=== PATIENT | male | born 1980 | race Two or more races ===

== ENCOUNTER 2023-08-12 13:32 | Emergency (ER) | payer SELFPAY ==
--- NOTE | 2023-08-12 14:03 | ED.GENADULT ---
HPI - General Adult General Chief complaint: Wound/Laceration Stated complaint: Ring Finger Lac Left Hand Time Seen by Provider: 08/12/23 15:02 Source: patient Mode of arrival: ambulatory Limitations: no limitations History of Present Illness HPI narrative: 43 yo right hand dominant male presents to the ER for evaluation of left index finger wound. 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 there was a lot of bleeding. he was anxious and seeing his blood made him vomit. someone told him to put the wound in loose leaf tobacco and wrap it up. he arrives to the ER with the piece of skin from the tip of the finger. no active bleeding. unknown today complaint: left index finger lac Onset (ago): minute(s) Location: left and upper extremity Radiation: proximal Severity: moderate Severity scale (1-10): 8 Quality: aching Pain Consistency: constant Exacerbating factors: movement Related Data Allergies Allergy/AdvReac Type Severity Reaction Status Date / Time No Known Allergies Allergy Verified 08/12/23 14:03 Review of Systems Review of Systems: Yes all other systems are reviewed and are negative [facility] Social History Social History Advance Directives: No Advance Directives Information Provided: Yes Physical Exam ED Vital Signs: Vital Signs - 24 hr 08/12/23 14:04 08/12/23 15:43 Temperature 98 F Pulse Rate 65 56 Respiratory Rate 19 16 Blood Pressure 153/78 H 123/56 L Pulse Oximetry 98 97 Oxygen Delivery Method Room Air Room Air BMI result Body Mass Index 28.1 Appearance: Alert. Oriented X3. No acute distress. HEENT: normal inspection CVS: Normal heart rate and rhythm. Pulses normal. Respiratory: No respiratory distress. Skin: Skin warm and dry. Normal skin color. Normal skin turgor. No rashes. Extremities: left index finger with a 1cm skin avulsion involving part of the distal fingernail. slight oozing with brown bits of tobacco stuck to the wound. FROM of the digit Neuro: Oriented X 3. No motor deficit. No sensory deficit. Course Course Course Narrative: RME - 43 year old male presents for evaluation of left 4th finger laceration from a customer support manager Procedures Laceration Laceration 1: Site: hand Side (If applicable): left Description: other (avulsion) Pre-repair: irrigated extensively Skin layer closed with: other (exofin skin glue) Medical Decision Making Medical Decision Making MDM Narrative: 43 yo male presenting with skin avulsion of the left index finger on a customer support manager. finger required extensive irrigation and soaking to remove the tobacco. tdap given. exofin used to cover and protect the wound with no further active bleeding. clean, dry, dressing applied. wound care discussed. stable for d/c home Differential Diagnosis Differential Diagnoses: The differential diagnosis associated with the presentation includes skin avulsion, open fracture, tendon injury Tests considered The following testing was considered but not selected: considered xray but wound is distal and superficial Prescription Management I considered prescription management with: Pain Medication and Antibiotic Critical Care Time Critical Care Time Critical Care Time: No Discharge Plan Discharge Clinical Impression: Avulsion of skin Patient Disposition: Home, Self-Care Instructions: Skin Avulsion (ED) Additional Instructions: Skin glue was used to cover and protect the area of open skin. This will heal with time. The skin glue will come off on its own, usually within 1 week, do not peel it off If you have recurrent bleeding, apply pressure for at least 10 minutes Elevate your hand when possible to help with pain and throbbing Take motrin and tylenol as needed for pain Keep clean and covered If you develop new or worsening symptoms call 911 or come back to the ER for further evaluation. Se utiliz? pegamento para la piel para cubrir y proteger el ?jarod de piel abierta. Mulat sanar? con el tiempo. El pegamento para la piel se desprender? solo, normalmente en 1 semana, no lo retires. Si tiene sangrado recurrente, aplique presi?n angeles al menos 10 minutos. Eleve la mano cuando sea posible para ayudar con el dolor y las pulsaciones. Tatamy motrin y tylenol seg?n sea necesario para el dolor. Mantener limpio y cubierto Si desarrolla s?ntomas nuevos o que empeoran, llame al 911 o regrese a la thomas de emergencias para zach evaluaci?n adicional. Stand Alone Forms: Work/School Release Print Language: Swedish
[2023-08-12 14:04] VITALS: BP 153/78; PULSE 65; RESP 19; TEMP 36.6; O2SAT 98; BMI 28.1
[2023-08-12 15:43] VITALS: BP 123/56; PULSE 56; RESP 16; O2SAT 97
[2023-08-12] MEDS: Diphth,Pertus(ACell),Tet Adult 0.5 ML SYRINGE IM (18:19)
== END 2023-08-12 18:26 | disposition home or self-care (01) ==
PROVIDERS: Emergency Provider Internal Medicine
DX: S61.211A Laceration without foreign body of left index finger without damage to nail, initial encounter (principal); S60.512A Abrasion of left hand, initial encounter; W26.0XXA Contact with knife, initial encounter; Y93.9 Activity, unspecified; Y92.410 Unspecified street and highway as the place of occurrence of the external cause; Y99.0 Civilian activity done for income or pay; Z23 Encounter for immunization
CPT/HCPCS: 12041; 90471; 90715; 99283; 99284